=== PATIENT | male | born 1935 | race African-American/Black ===

== ENCOUNTER 2020-04-27 17:22 | Emergency (ER) | payer OTHER ==
[~2020-04-27] VITALS: Ht 170.2 cm; Wt 59.0 kg
[2020-04-27 17:25] VITALS: BP 118/70
--- NOTE | 2020-04-27 17:25 | NUR ---
ED Nurse Note: Patient BIBA from home d/t weakness and unsteady gait. Patient's cousin told EMS that patient left stove on for 3 days, apartment was hot per EMS. Patient AxO x 4, appears drowsy. 20 g IV started left forearm, blood sent to lab. Urinal left at bedside.
--- NOTE | 2020-04-27 17:28 | Emergency Room Report ---
History of Present Illness General Chief Complaint: Generalized Weakness Source: Patient, EMS Present Illness HPI Patient is an 84-year-old male who presents for increased generalized weakness. Patient had been reportedly living at home by himself. Family had apparently requested evaluation after patient had been seen to be leaving his stove top on persistently. Had prior history of prostate disease as well as glaucoma. He states he is normally followed at [facility]. 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[employer]ERT FORENSIC: No Patient History Past Medical History: see triage record Reviewed Nursing Documentation: PMH: Agreed; PSxH: Agreed Review of Systems All Other Systems: negative except mentioned in HPI Physical Exam Vital Signs Date Time Temp Pulse Resp B/P (MAP) Pulse Ox O2 Delivery O2 Flow Rate FiO2 04/27/20 17:16 97.0 110 12 118/70 (86) 98 Room Air Sp02 EP Interpretation: reviewed, normal General Appearance: normal inspection, alert, GCS 15, Chronically Ill Head: atraumatic ENT: normal ENT inspection, hearing grossly normal, normal voice Neck: normal inspection, full range of motion, supple, no bony tend Respiratory: normal inspection, lungs clear, normal breath sounds, no respiratory distress, no retraction, no wheezing Cardiovascular #1: regular rate, rhythm, no edema Gastrointestinal: normal inspection, normal bowel sounds, non tender, soft, no guarding, no hernia Genitourinary: no CVA tenderness Musculoskeletal: back normal Neurologic: alert, motor weakness - Generalized muscle weakness and atrophy, responsive, speech normal, normal inspection Psychiatric: normal inspection, judgement/insight normal, mood/affect normal Medical Decision Making Diagnostic Impression: Primary Impression: Hypernatremia Additional Impressions: Renal insufficiency Rhabdomyolysis Dehydration ER Course Patient presented for generalized weakness. Differential diagnosis include was not limited to electrolyte abnormality, urinary tract infection dementia, among others. Because of complexity of patient's case laboratory tests and imaging studies were ordered.Patient's laboratory testing showed evidence of hyponatremia as well as elevated BUN/creatinine. Coronavirus testing was negative. Dr. ASTON Vinson was contacted for assistant facility manager with medical records. Chest x-ray 1 view interpreted by me showed trace right-sided pleural effusion without evident infiltrate and normal cardiac size.Patient's laboratory testing additionally showed elevated CPK troponin was noted to be negative. Patient given IV fluids as well as IV antibiotics. Patient appears to require hospitalization for further IV hydration and treatment of rhabdomyolysis and renal sufficiency. Patient was discussed with from [facility] and patient will be transferred for continuity of care to [facility] Labs Test 04/27/20 17:30 04/27/20 17:39 White Blood Count 7.6 K/UL (4.8-10.8) Red Blood Count 3.84 M/UL (4.70-6.10) Hemoglobin 12.1 G/DL (14.2-18.0) Hematocrit 36.7 % (42.0-52.0) Mean Corpuscular Volume 95 FL (80-99) Mean Corpuscular Hemoglobin 31.3 PG (27.0-31.0) Mean Corpuscular Hemoglobin Concent 32.9 G/DL (32.0-36.0) Red Cell Distribution Width 12.0 % (11.6-14.8) Platelet Count 120 K/UL (150-450) Mean Platelet Volume 6.1 FL (6.5-10.1) Neutrophils (%) (Auto) 78.1 % (45.0-75.0) Lymphocytes (%) (Auto) 13.3 % (20.0-45.0) Monocytes (%) (Auto) 7.6 % (1.0-10.0) Eosinophils (%) (Auto) 0.5 % (0.0-3.0) Basophils (%) (Auto) 0.5 % (0.0-2.0) Sodium Level 155 MMOL/L (136-145) Potassium Level 3.9 MMOL/L (3.5-5.1) Chloride Level 117 MMOL/L (98-107) Carbon Dioxide Level 20 MMOL/L (21-32) Anion Gap 18 mmol/L (5-15) Blood Urea Nitrogen 45 mg/dL (7-18) Creatinine 2.5 MG/DL (0.55-1.30) Estimat Glomerular Filtration Rate 29.9 mL/min (>60) Glucose Level 101 MG/DL (74-106) Lactic Acid Level 2.40 mmol/L (0.4-2.0) Calcium Level 10.8 MG/DL (8.5-10.1) Total Bilirubin 1.1 MG/DL (0.2-1.0) Direct Bilirubin 0.3 MG/DL (0.0-0.3) Aspartate Amino Transf (AST/SGOT) 60 U/L (15-37) Alanine Aminotransferase (ALT/SGPT) 30 U/L (12-78) Alkaline Phosphatase 43 U/L (46-116) Total Creatine Kinase 1491 U/L (26-308) Creatine Kinase MB 13.6 NG/ML (0.0-3.6) Creatine Kinase MB Relative Index 0.9 Troponin I 0.043 ng/mL (0.000-0.056) Pro-B-Type Natriuretic Peptide 2962 pg/mL (0-125) Total Protein 9.0 G/DL (6.4-8.2) Albumin 3.9 G/DL (3.4-5.0) Globulin 5.1 g/dL Albumin/Globulin Ratio 0.8 (1.0-2.7) Arterial Blood pH 7.372 (7.350-7.450) Arterial Blood Partial Pressure CO2 31.6 mmHg (35.0-45.0) Arterial Blood Partial Pressure O2 86.4 mmHg (75.0-100.0) Arterial Blood HCO3 17.9 mmol/L (22.0-26.0) Arterial Blood Oxygen Saturation 95.7 % (95-100) Arterial Blood Base Excess -6.3 (-2-2) Joseph Test Positive EKG Diagnostic Results Rate: normal Rhythm: NSR ST Segments: no acute changes Last Vital Signs Date Time Temp Pulse Resp B/P (MAP) Pulse Ox O2 Delivery O2 Flow Rate FiO2 04/27/20 17:16 97.0 110 12 118/70 (86) 98 Room Air Status: improved Disposition: SHORT-TERM HOSP Condition: Stable Scripts Unable to Obtain Active Prescriptions or Reported Meds Sanchez Ledezma MD Apr 27, 2020 17:28
[2020-04-27 17:42] LABS: BASOPHILS % (AUTO) 0.5 % (0.0-2.0); EOSINOPHILS % (AUTO) 0.5 % (0.0-3.0); HEMATOCRIT 36.7 % (42.0-52.0); HEMOGLOBIN 12.1 G/DL (14.2-18.0); LYMPHOCYTES % (AUTO) 13.3 % (20.0-45.0); MEAN CORPUSCULAR VOLUME 95 FL (80-99); MONOCYTES % (AUTO) 7.6 % (1.0-10.0); NEUTROPHILS % (AUTO) 78.1 % (45.0-75.0); PLATELET COUNT 120 K/UL (150-450); RED BLOOD COUNT 3.84 M/UL (4.70-6.10); WHITE BLOOD COUNT 7.6 K/UL (4.8-10.8)
[2020-04-27 17:58] LABS: CALCIUM 10.8 MG/DL (8.5-10.1); CREATININE 2.5 MG/DL (0.55-1.30); POTASSIUM 3.9 MMOL/L (3.5-5.1)
--- NOTE | 2020-04-27 18:01 | Diagnostic Imaging Report ---
EXAM: XR Chest, 1 View CLINICAL HISTORY: SOB TECHNIQUE: Frontal view of the chest. COMPARISON: No relevant prior studies available. FINDINGS: Lungs: Unremarkable. No consolidation. Pleural space: Unremarkable. No pneumothorax. Heart: Unremarkable. No cardiomegaly. Mediastinum: Unremarkable. Bones/joints: No acute abnormality IMPRESSION: 1. No acute cardiopulmonary disease. 2. If there is continued concern recommend frontal and lateral chest radiographs or CT.
[2020-04-27 18:13] LABS: ALBUMIN 3.9 G/DL (3.4-5.0); ALBUMIN/GLOBULIN RATIO 0.8 (1.0-2.7); BILIRUBIN,TOTAL 1.1 MG/DL (0.2-1.0); CKMB 13.6 NG/ML (0.0-3.6)
[2020-04-27 18:16] LABS: BILIRUBIN,DIRECT 0.3 MG/DL (0.0-0.3)
--- NOTE | 2020-04-27 18:33 | NUR ---
Spoke with Neetu at [facility]- Lamoni doctor will call back to speak with .
--- NOTE | 2020-04-27 18:40 | NUR ---
ED Nurse Note: Lactic acid reflex sent to lab
[2020-04-27] MEDS ORDERED: cefTRIAXone 1 GM in NS 55 ML IVPB ONE (18:45)
--- NOTE | 2020-04-27 19:05 | NUR ---
HAND-OFF: Report given to Qian CHAPPELL.
--- NOTE | 2020-04-27 19:07 | NUR ---
ED Nurse Note: pt resting in bed, VSS no ss of distress noted. will continue to monitor.
[2020-04-27 19:36] VITALS: BP 151/65
[2020-04-27 19:42] VITALS: BP 126/70
[2020-04-27 20:25] VITALS: BP 148/75
--- NOTE | 2020-04-27 20:25 | NUR ---
ED Nurse Note: Report given to TA Betancourt at [facility] Emergency Room.
[2020-04-27 20:35] VITALS: BP 151/96
--- NOTE | 2020-04-27 20:35 | NUR ---
ER DISCHARGE NOTE: Patient is cleared to be discharged to [facility] Emergency Room per ERMD, pt is aox3, on room air, with stable vital signs. pt was able to verbalize understanding, pt id band removed without complications. pt is unable to ambulate at this time. pt took all belongings. Report given to TA Betancourt at [facility] ED and report given to [facility] for transfer.
--- NOTE | 2020-05-01 21:57 | Cardiology Report ---
APPROVED REPORT EKG Measurement Heart [id number] <Conclusion> Normal sinus rhythm Normal ECG
== END 2020-04-27 20:35 | disposition short-term general hospital (02) ==
LOC: EDBD 17:22 → EMR 17:43
DX: E87.0 Hyperosmolality and hypernatremia (principal); E86.0 Dehydration; N28.9 Disorder of kidney and ureter, unspecified; M62.82 Rhabdomyolysis
CPT/HCPCS: 36415; 71045; 80053; 82248; 82550; 82553; 82803; 83605; 83880; 84484; 85025; 87040; 93005; 96365; 99285; J0696; J7040; U0002